=== PATIENT | female | born 1985 | race Caucasian/White ===

== ENCOUNTER 2021-10-17 11:46 | Outpatient (CLI) | payer OTHER | END 2021-10-17 17:00 | disposition home or self-care (01) | LOC: SRD 11:46 | PROVIDERS: ATTEND Specialist | DX: N92.6 Irregular menstruation, unspecified (principal) | CPT/HCPCS: 58340; 74740; C1751; Q9967 ==

== ENCOUNTER 2022-01-08 15:55 | Outpatient (CLI) | payer OTHER ==
[2022-01-10 08:06] LABS: ESTRADIOL 62.2 pg/mL (.); LUETENIZING HORMONE 13.1 mIU/mL (.)
== END 2022-01-08 19:49 | disposition home or self-care (01) ==
LOC: SLB 15:55
PROVIDERS: ATTEND Pathology Anatomic Pathology & Clinical Pathology
DX: Z11.3 Encounter for screening for infections with a predominantly sexual mode of transmission (principal); N92.6 Irregular menstruation, unspecified; E28.2 Polycystic ovarian syndrome
CPT/HCPCS: 36415; 80074; 82670; 83001; 83002; 87491

== ENCOUNTER 2022-01-13 09:37 | Outpatient (CLI) | payer OTHER | END 2022-01-13 20:53 | disposition home or self-care (01) | LOC: SLB 09:37 | PROVIDERS: ATTEND Pathology Anatomic Pathology & Clinical Pathology | DX: N92.6 Irregular menstruation, unspecified (principal); E28.2 Polycystic ovarian syndrome | CPT/HCPCS: 36415; 82670; 83002 ==

== ENCOUNTER 2022-02-03 10:37 | Outpatient (CLI) | payer OTHER | END 2022-02-03 20:00 | disposition home or self-care (01) | LOC: SLB 10:37 | PROVIDERS: ATTEND Specialist | DX: N91.2 Amenorrhea, unspecified (principal) | CPT/HCPCS: 36415; 84144; 84702 ==

== ENCOUNTER 2022-02-09 09:26 | Outpatient (CLI) | payer OTHER | END 2022-02-09 21:21 | disposition home or self-care (01) | LOC: SLB 09:26 | PROVIDERS: ATTEND Specialist | DX: N91.2 Amenorrhea, unspecified (principal) | CPT/HCPCS: 36415; 84144; 84702 ==

== ENCOUNTER 2022-02-11 14:44 | Outpatient (CLI) | payer OTHER | END 2022-02-11 20:47 | disposition home or self-care (01) | LOC: SLB 14:44 | PROVIDERS: ATTEND Specialist | DX: E03.9 Hypothyroidism, unspecified (principal); N92.6 Irregular menstruation, unspecified | CPT/HCPCS: 36415; 83036; 84443 ==

== ENCOUNTER → 2022-05-18 | Outpatient (CLI) | payer OTHER | END | disposition home or self-care (01) | LOC: SLB 14:33 | PROVIDERS: ATTEND Specialist | DX: N91.2 Amenorrhea, unspecified (principal) | CPT/HCPCS: 36415; 84144; 84702 ==

== ENCOUNTER 2022-05-20 10:02 | Outpatient (CLI) | payer OTHER | END 2022-05-20 20:44 | disposition home or self-care (01) | LOC: SLB 10:02 | PROVIDERS: ATTEND Specialist | DX: N91.2 Amenorrhea, unspecified (principal) | CPT/HCPCS: 36415; 84144; 84702 ==

== ENCOUNTER 2023-01-04 15:26 | Observation (INO) | payer OTHER ==
[~2023-01-04] VITALS: Ht 160 cm; Wt 72.6 kg
== END 2023-01-04 16:30 | disposition home or self-care (01) ==
LOC: SPU 15:38
PROVIDERS: ADMIT Specialist; ATTEND Specialist
DX: O41.03X0 Oligohydramnios, third trimester, not applicable or unspecified (principal); Z3A.37 37 weeks gestation of pregnancy; Z88.0 Allergy status to penicillin
CPT/HCPCS: 59025; 81002; G0378; G0379

== ENCOUNTER 2023-01-11 14:21 | Inpatient (IN) | payer OTHER ==
[~2023-01-11] VITALS: Ht 160 cm; Wt 73.9 kg
[2023-01-11] MEDS ORDERED: TERBUTALINE SULFATE 1 MG/ML VIAL SUBCUT ONE (17:30)
[2023-01-11] MEDS ORDERED: NALBUPHINE HCL 10 MG/ML AMP IVP PRN (17:30)
[2023-01-11] MEDS ORDERED: NALBUPHINE HCL 10 MG/ML AMP IM PRN (17:30)
[2023-01-11 18:31] VITALS: BP_SYST 106
[2023-01-11 18:52] LABS: BASOPHILS % (AUTO) 0.2 % (0.0-2.0); EOSINOPHILS % (AUTO) 0.6 % (0.0-4.0); HEMATOCRIT 39.2 % (36-48); HEMOGLOBIN 13.4 g/dL (12.0-16.0); LYMPHOCYTES # (AUTO) 1.4 K/uL (1.0-5.5); MEAN CORPUSCULAR HEMOGLOBIN 31 pg (27-31); MEAN CORPUSCULAR HGB CONC 34 % (32-36); MEAN CORPUSCULAR VOLUME 91 fL (79.0-98.0); MONOCYTES # (AUTO) 0.3 K/uL (0.0-1.0); MONOCYTES % (AUTO) 3.6 % (1.7-9.3); NEUTROPHILS # (AUTO) 6.7 K/uL (1.8-7.7); NEUTROPHILS % (AUTO) 78.6 % (40.0-70.0); PLATELET COUNT (AUTO) 217 K/uL (130-430); RED BLOOD CELL COUNT(AUTO) 4.29 MIL/uL (4.2-6.2); RED CELL DISTRIBUTION WIDTH 13.3 % (9.0-15.0); WHITE BLOOD COUNT (AUTO) 8.5 K/uL (4.8-10.8)
[2023-01-12] MEDS ORDERED: OXYTOCIN/0.9 % SODIUM CHLORIDE 1,000 ML IV SCH ×2 (04:00→15:30)
[2023-01-12] MEDS ORDERED: ROPIVACAINE HCL/PF 0.2% 200 ML ONE (04:18)
[2023-01-12] MEDS ORDERED: fentaNYL CITRATE/PF 100 MCG/2 ML AMP ONE (04:18)
[2023-01-12] MEDS ORDERED: ONDANSETRON HCL 4 MG/2 ML VIAL IVP PRN (04:30)
[2023-01-12] MEDS ORDERED: FENT2mCg/mL-ROPIVA0.2%/NS EPID 200 ML EP SCH (04:30)
[2023-01-12] MEDS: LR 1,000 ML IV SCH ×3 (04:55→08:56)
[2023-01-12] MEDS ORDERED: LEVOTHYROXINE SODIUM 0.025 MG TABLET PO SCH (07:00)
[2023-01-12] MEDS ORDERED: LIDOCAINE PF 1% 30ML(POUR BTL) INJ ONE (09:57)
[2023-01-12] MEDS ORDERED: NALOXONE HCL 0.4 MG/ML AMP (NARCAN) ONE (09:57)
[2023-01-12] MEDS ORDERED: LIGHT MINERAL OIL 10 ML VIAL MC ONE (09:57)
[2023-01-12] MEDS ORDERED: HYDROCORTISONE 0.5% CREAM 28.4 GM CREAM.GM. TP PRN (14:45)
[2023-01-12] MEDS ORDERED: HYDROcodone/ACETAMIN 5-325 MG TAB (NORCO/ VICODIN) PO PRN (14:45)
[2023-01-12] MEDS ORDERED: RHO(D) IMMUNE GLOBULIN/MALTOSE 1500 UNITS/1.3 ML (WINHRO) IM PRN (14:45)
[2023-01-12] MEDS ORDERED: ANUSOL 1 EA SUPP.RECT (PREPARATION H) RC PRN (14:45)
[2023-01-12] MEDS ORDERED: WITCH HAZEL LEAF 1 MED.PAD MED.PAD TP PRN (14:45)
[2023-01-12] MEDS ORDERED: MEASLES,MUMPS&RUBELLA VACC/PF 12500 UNIT/0.5 ML VIAL SUBQ PRN (14:45)
[2023-01-12] MEDS ORDERED: DERMOPLAST SPRAY TP PRN (14:45)
[2023-01-12] MEDS ORDERED: NALOXONE HCL 0.4 MG/ML AMP (NARCAN) IVP PRN (14:45)
[2023-01-12] MEDS ORDERED: OXYTOCIN/0.9 % SODIUM CHLORIDE 1,000 ML IV ONE (14:45)
[2023-01-12] MEDS ORDERED: METHYLERGONOVINE MALEATE 0.2 MG TABLET PO PRN (14:45)
[2023-01-12] MEDS ORDERED: OXYCODONE/ACETAMINOPHEN 5-325 TABLET PO PRN (14:45)
[2023-01-12] MEDS ORDERED: LANOLIN 7 GM OINT. TP PRN (14:45)
[2023-01-12] MEDS: IBUPROFEN 600 MG TABLET PO SCH (18:06)
[2023-01-12] MEDS ORDERED: TEMAZEPAM 15 MG CAPSULE PO PRN (21:00)
[2023-01-12] MEDS ORDERED: SENNOSIDES/DOCUSATE SODIUM 1 TAB TABLET(SENOKOT-S) PO SCH (21:00)
[2023-01-12] MEDS: OXYCODONE/ACETAMINOPHEN 5-325 TABLET PO PRN (22:55)
[2023-01-13] MEDS: IBUPROFEN 600 MG TABLET PO SCH ×3 (00:10→13:21)
[2023-01-13] MEDS: OXYCODONE/ACETAMINOPHEN 5-325 TABLET PO PRN ×2 (05:21→11:20)
[2023-01-13 06:49] LABS: BASOPHILS % (AUTO) 0.3 % (0.0-2.0); EOSINOPHILS # (AUTO) 0.1 K/uL (0.0-0.4); EOSINOPHILS % (AUTO) 1.4 % (0.0-4.0); HEMATOCRIT 31.1 % (36-48); HEMOGLOBIN 10.5 g/dL (12.0-16.0); LYMPHOCYTES # (AUTO) 1.8 K/uL (1.0-5.5); LYMPHOCYTES % (AUTO) 19.8 % (20.5-51.5); MEAN CORPUSCULAR HEMOGLOBIN 31 pg (27-31); MEAN CORPUSCULAR HGB CONC 34 % (32-36); MEAN CORPUSCULAR VOLUME 92 fL (79.0-98.0); MONOCYTES # (AUTO) 0.6 K/uL (0.0-1.0); MONOCYTES % (AUTO) 6.3 % (1.7-9.3); NEUTROPHILS # (AUTO) 6.4 K/uL (1.8-7.7); NEUTROPHILS % (AUTO) 72.2 % (40.0-70.0); PLATELET COUNT (AUTO) 183 K/uL (130-430); RED BLOOD CELL COUNT(AUTO) 3.38 MIL/uL (4.2-6.2); RED CELL DISTRIBUTION WIDTH 13.6 % (9.0-15.0); WHITE BLOOD COUNT (AUTO) 8.9 K/uL (4.8-10.8)
[2023-01-13] MEDS ORDERED: DOCUSATE SODIUM 100 MG CAPSULE PO SCH (09:00)
== END 2023-01-13 15:25 | disposition home or self-care (01) | DRG 807 ==
LOC: SPU 14:21 → OBSVTOIN 14:21 → SPU 17:31
PROVIDERS: ADMIT Specialist; ATTEND Specialist
PROC: 10E0XZZ Delivery of Products of Conception, External Approach (ICD-10-PCS; principal; 2023-01-12)
PROC: 3E0R3BZ Introduction of Anesthetic Agent into Spinal Canal, Percutaneous Approach (ICD-10-PCS; 2023-01-12)
PROC: 00HU33Z Insertion of Infusion Device into Spinal Canal, Percutaneous Approach (ICD-10-PCS; 2023-01-12)
DX: O41.03X0 Oligohydramnios, third trimester, not applicable or unspecified (principal); Z37.0 Single live birth; O43.123 Velamentous insertion of umbilical cord, third trimester; Z3A.38 38 weeks gestation of pregnancy
CPT/HCPCS: 36415; 76815; 81002; 85025; 86592; 86886; 86900; 86901; 94760; J2001; J2310; J2590; J3010